=== PATIENT | male | born 2000 | race Caucasian/White ===

== ENCOUNTER → 2019-11-07 16:31 | Outpatient (CLI) | payer OTHER, SELFPAY ==
--- NOTE | ~2019-11-07 | XR_ITS ---
XR foot RT min 3V DATE: 11/07/2019 17:01 INDICATION: Right foot pain TECHNIQUE: 4 views COMPARISON: None FINDINGS: No fracture or dislocation, periosteal reaction or bone destruction. Joint spaces are prese rved. No erosive changes. IMPRESSION: No significant abnormality Reviewed, dictated and finalized at location A. IMPRESSION: No significant abnormality
== END ==
DX: M79.671 Pain in right foot (principal)
CPT/HCPCS: 73630